=== PATIENT | female | born 1980 | race Two or more races ===

== ENCOUNTER 2019-04-16 10:46 | Inpatient (IN) | payer OTHER ==
[~2019-04-16] VITALS: Ht 165.1 cm; Wt 82.4 kg
[~2019-04-16 10:46] MED LIST: ACET30TA15
[2019-04-16] MEDS ORDERED: SODIUM CHLORIDE 0.9% 1,000 ML IVB ONE (10:53)
[2019-04-16] MEDS ORDERED: KETOROLAC TROMETH 30 MG/ML 1ML VIAL IV ONE ×3 (11:00→21:45)
[2019-04-16] MEDS ORDERED: KETOROLAC TROMETH 60MG/2ML VIAL ONE ×2 (11:31→22:10)
[2019-04-16 11:32] LABS: Basophils # (auto) 0 uL; Basophils % (auto) 0.2 % (0.0-2.0); Eosinophils # (auto) 0.1 uL; Eosinophils % (auto) 0.6 % (0.0-7.0); Hematocrit 37.4 % (36.0-46.0); Hemoglobin 12.4 g/dL (12.2-16.2); Lymphocytes % (auto) 17.6 % (10.0-50.0); Mean Corpuscular Hemoglobin 27.8 pg (28.0-32.0); Mean Corpuscular Volume 84.2 fL (80.0-100.0); Monocytes # (auto) 0.7 uL; Monocytes % (auto) 6.5 % (0.0-12.0); Neutrophils # (auto) 8.5 uL; Neutrophils % (auto) 75.1 % (37.0-80.0); Platelet Count (auto) 253 10^3/uL (140-450); Red Blood Cells 4.45 10^6/uL (4.0-5.20); Red Cell Distribution Width 14.3 % (11.8-14.3); White Blood Cell 11.3 10^3/uL (4.4-10.8)
[2019-04-16 11:42] LABS: Albumin 3.6 g/dL (3.4-5.0); Calcium 8.5 mg/dL (8.5-10.1); Potassium 3.4 mmol/L (3.5-5.1)
[2019-04-16 11:44] LABS: Bilirubin, Total 0.6 mg/dL (0.2-1.0); Total Protein 7.8 g/dL (6.4-8.2)
[2019-04-16 12:09] LABS: Urine Bacteria NONE SEEN /hpf (None Seen); Urine Blood 1+ /uL (Negative); Urine Mucus FEW (None Seen); Urine Specific Gravity 1.019 (1.001-1.035); Urine WBC <1 /hpf (0 - 5)
[2019-04-16] MEDS ORDERED: SODIUM CHLORIDE 0.9% 1,000 ML IV ONE ×2 (21:45)
[2019-04-16] MEDS ORDERED: D5W/SOD CHLO 0.9% 1,000 ML IV ONE ×2 (21:45→23:00)
[2019-04-16] MEDS ORDERED: ONDANSETRON HCL 4 MG/2 ML VIAL IV ONE (21:45)
[2019-04-16] MEDS ORDERED: MORPHINE SULF INJ 2 MG/ML SYRINGE 1ML IV PRN (23:30)
[2019-04-16] MEDS ORDERED: ONDANSETRON HCL 4 MG/2 ML VIAL IV PRN (23:30)
[2019-04-16] MEDS ORDERED: ACETAMINOPHEN 500 MG TAB PO PRN (23:30)
[2019-04-16] MEDS ORDERED: metroNIDAZOLE 500MG/100ML 100 ML IV ONE (23:30)
[2019-04-16] MEDS ORDERED: cefTRIAXone 1GM/50ML D5W 50 ML IV SCH (23:30)
[2019-04-16] MEDS: SODIUM CHLORIDE 0.9% 1,000 ML IV SCH (23:58)
--- NOTE | 2019-04-17 00:30 | NUR ---
MS admit from [facility] admitted to tele/MS. Patient oriented to CRESCENCIO RENTEIRA, RN primary RN, unit, room, bed, and unit policies regarding patient care and visiting hours. Patient weighed by bedscale and encouraged to call if they need something. All questions and concerns addressed, patient verbalized understanding.
[2019-04-17 05:30] VITALS: BP 100/56
[2019-04-17 05:59] LABS: Basophils # (auto) 0 uL; Basophils % (auto) 0.3 % (0.0-2.0); Eosinophils # (auto) 0.1 uL; Eosinophils % (auto) 2.9 % (0.0-7.0); Hemoglobin 10.7 g/dL (12.2-16.2); Lymphocytes # (auto) 2.1 uL; Lymphocytes % (auto) 41.4 % (10.0-50.0); Mean Corpuscular Hemoglobin 28.1 pg (28.0-32.0); Mean Corpuscular Hgb Conc. 33.5 g/dL (32.0-36.0); Mean Corpuscular Volume 84.1 fL (80.0-100.0); Monocytes # (auto) 0.5 uL; Monocytes % (auto) 9.6 % (0.0-12.0); Neutrophils # (auto) 2.3 uL; Neutrophils % (auto) 45.8 % (37.0-80.0); Platelet Count (auto) 197 10^3/uL (140-450); Red Cell Distribution Width 14.7 % (11.8-14.3); White Blood Cell 5.1 10^3/uL (4.4-10.8)
[2019-04-17 06:22] LABS: INR 0.96 (0.9-1.15); Partial Thromboplastin Time 28.2 sec (23.64-32.05)
[2019-04-17 06:23] LABS: Potassium 3.4 mmol/L (3.5-5.1)
[2019-04-17 06:27] LABS: BUN/Creatinine Ratio 10.3; Calcium 7.9 mg/dL (8.5-10.1)
--- NOTE | 2019-04-17 07:40 | NUR ---
Opening Shift Note Assumed care of patient, awake and alert. No S/S of distress/SOB or pain. Instructed on POC and to call for assist PRN, will continue to monitor for changes Q1hr and PRN. Bed locked in lowest position with two side rails up and call light in reach. Will continue to monitor.
[2019-04-17 08:00] VITALS: BP 102/68
[2019-04-17] MEDS ORDERED: LIDOCAINE 1% (LOCAL ANESTH.) PF 5ml SDV ONE (08:20)
[2019-04-17] MEDS ORDERED: ROCURONIUM 10MG/ML 10ML VIAL IV ONE (08:21)
[2019-04-17] MEDS ORDERED: MIDAZOLAM HCL 1MG/1ML-2 ML VIAL ONE (08:22)
--- NOTE | 2019-04-17 08:22 | NUR ---
RECEIVED A CALL FROM [facility] TO BRING PATIENT DOWN, MO ORDERS HAVE BEEN PLACED FOR ANY PROCEDURE. PER [facility] NURSE THEY WILL GET CONSENTS FOR PATIENT.
[2019-04-17] MEDS ORDERED: PROPOFOL 10 MG/ML 20 ML IV ONE (08:23)
--- NOTE | 2019-04-17 08:31 | NUR ---
TOOK PATIENT DOWN TO [facility], NO PAPERS DONE OR CHECK LIST, [facility] NURSE WANTED PATIENT DOWN SOON POSSIBLE. THEY ARE AWARE OF NO CONSENTS OR PAPER SIGNED INCLUDING CHECK LIST I DID NOT HAVE TIME TO GET ANYTHING DONE BECAUSE PATIENT WAS NEEDED DOWN STAIRS ALMOST IMMEDIATELY. PATIENT WAS ALERT & ORIENTED, AMBULATORY, AND NO PAIN NOTED WILL AWAIT PATIENTS RETURN.
[2019-04-17] MEDS ORDERED: ceFAZolin 1GM/50ML 50 ML IV ONE (08:53)
[2019-04-17] MEDS: SODIUM CHLORIDE 0.9% 1,000 ML IV SCH (09:30)
[2019-04-17 09:35] VITALS: BP 102/68
[2019-04-17] MEDS ORDERED: SUCCINYLCHOLINE CHLORIDE 20 MG/ML 10ML VIAL IV ONE (09:35)
[2019-04-17] MEDS ORDERED: HYDROmorphone HCL 2 MG/ML VL IV PRN ×2 (09:45)
[2019-04-17] MEDS ORDERED: ONDANSETRON HCL 4 MG/2 ML VIAL IV ONE (09:45)
[2019-04-17] MEDS ORDERED: NALOXONE HCL 0.4 MG/ML VIAL IV PRN (09:45)
[2019-04-17] MEDS ORDERED: METOCLOPRAMIDE HCL 5MG/ml INJ 2ml VIAL ONE (09:51)
[2019-04-17] MEDS ORDERED: fentaNYL CITRATE 100 MCG/2 ML VL ONE (10:03)
[2019-04-17] MEDS ORDERED: KETOROLAC TROMETH 30 MG/ML 1ML VIAL ONE (10:15)
--- NOTE | 2019-04-17 11:46 | NUR ---
RECEIVED PATIENT TO THE FLOOR A/O X4 NO SIGNS AND SYMPTOMS OF DISTRESS OR PAIN NOTED AT THIS TIME. 3 INCISIONS TO THE ABDOMINAL AREA MIDLINE, AND THEY ARE CLEAN DRY AND INTACT ONLY SLIGHT BETADINE NOTED ON GAUZE. ABDOMINAL BINDER IN PLACE, PATIENT EDUCATED ON AMBULATING Q 4 HOURS AND TO SPLINT WHEN COUGHING, PATIENT ALSO GIVEN INCENTIVE SPIROMETER TO USE POST OPERATIVELY INSTRUCTED AND ORDERED BY DOCTOR. WILL CONTINUE TO MONITOR.
[2019-04-17] MEDS ORDERED: SOD CHL 0.9%/ KCL 20MEQ 1,000 ML IV ONE (13:00)
[2019-04-17 13:07] VITALS: BP 103/53
[2019-04-17] MEDS ORDERED: SOD CHL 0.45% WITH 20MEQ KCL 1,000 ML IV ONE (14:45)
[2019-04-17] MEDS: CIPROFLOXACIN HCL 500 MG TAB PO SCH ×2 (14:46→22:57)
[2019-04-17] MEDS: metroNIDAZOLE 500 MG TAB PO SCH ×2 (14:46→22:57)
[2019-04-17 17:05] VITALS: BP 100/61
[2019-04-17 21:25] VITALS: BP 108/65
[2019-04-18 05:44] VITALS: BP 104/65
[2019-04-18] MEDS: metroNIDAZOLE 500 MG TAB PO SCH ×2 (06:24→14:00)
--- NOTE | 2019-04-18 07:18 | NUR ---
Opening Shift Note Assumed care of patient, awake and alert. No S/S of distress/SOB or pain. Instructed on POC and to call for assist PRN, will continue to monitor for changes Q1hr and PRN.
--- NOTE | 2019-04-18 07:32 | NUR ---
Per warp scouring vat tender RN, IVF that contained KCL were administered and finished.
--- NOTE | 2019-04-18 08:14 | NUR ---
Dr. Garcia paged. Awaiting call back.
--- NOTE | 2019-04-18 08:18 | NUR ---
Patient complained of chest pain. Chest pain radiated to from shoulder to chest. Pain described as sharp and "mostly when I breathe." EKG obtained. Dr. Leon read EKG. ordered STAT troponin. No additional orders received. Will continue care.
[2019-04-18] MEDS: CIPROFLOXACIN HCL 500 MG TAB PO SCH (09:24)
[2019-04-18 09:38] VITALS: BP 103/56
[2019-04-18] MEDS ORDERED: PANTOPRAZOLE 40 MG TAB PO SCH (10:00)
--- NOTE | 2019-04-18 11:06 | NUR ---
[facility] D/C ORDERS Spoke with Dr. Garcia. Diet can be advanced as tolerated. Patient is clear for discharge, have patient follow-up in 2 weeks. Patient may shower 04/19/19. Remove bandages today and leave incisions open to air.
--- NOTE | 2019-04-18 12:45 | NUR ---
Patient tolerated full liquid lunch. Patient denies distress, abdominal pain, or N/V. Bowel sounds active in all 4 quadrants.
--- NOTE | 2019-04-18 12:45 | NUR ---
Reported allergy to codeine to Dr. Kuhn. changed discharge pain medication to Tramadol.
[2019-04-18 13:04] VITALS: BP 102/76
--- NOTE | 2019-04-18 13:35 | NUR ---
Patient tolerated regular diet lunch. Patient denies distress, abdominal pain, or N/V. Bowel sounds active in all 4 quadrants.
--- NOTE | 2019-04-18 13:45 | NUR ---
Dr. Kuhn read EKG. No new orders, proceed with discharge.
--- NOTE | 2019-04-18 14:20 | NUR ---
Per Dr. Kuhn, patient does not need additional K supplementation. Patient received IVF with KCL yesterday.
--- NOTE | 2019-04-18 15:45 | NUR ---
Wound care performed. Incisions are well approximated, not draining, and not discolored. No signs of infection. No bleeding noted. Patient educated on wound care for home.
--- NOTE | 2019-04-18 16:28 | NUR ---
Discharge instructions given as ordered. Encourage to follow up with PMD as instructed. All questions and concerns addressed. Patient verbalized understanding. Medication reconciliation form completed and copy given to patient. Patient denies home medications held in Pharmacy returned to patient. IV removed with catheter intact, pressure dressing applied, Patient taken to vehicle with all personal belongings, accompanied by family member. No distress noted at time of departure.
[2019-04-18 16:52] VITALS: BP 106/61
== END 2019-04-18 17:29 | disposition home or self-care (01) | DRG 343 ==
LOC: ER 10:50 → OVERFLOW 23:40 → WEST WING 23:56
PROVIDERS: ADMIT Nurse Practitioner Family; ATTEND Internal Medicine
PROC: 0DTJ4ZZ Resection of Appendix, Percutaneous Endoscopic Approach (ICD-10-PCS; principal; 2019-04-17 09:51)
DX: K35.80 Unspecified acute appendicitis (principal); E66.9 Obesity, unspecified; E87.6 Hypokalemia; Z98.891 History of uterine scar from previous surgery; Z88.5 Allergy status to narcotic agent; Z68.30 Body mass index [BMI] 30.0-30.9, adult
CPT/HCPCS: 36415; 71045; 74176; 80048; 80053; 81001; 81025; 83690; 84484; 85025; 85610; 85730; 86850; 86900; 86901; G0378; J0330; J0690; J0696; J1885; J2250; J2405; J2704; J3490